=== PATIENT | female | born 2000 | race Caucasian/White ===

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

== ENCOUNTER 2020-04-17 13:06 | Emergency (ER) | payer MEDICAID ==
[~2020-04-17] VITALS: Ht 165.1 cm; Wt 72.6 kg
--- NOTE | 2020-04-17 13:10 | NUR ---
BIB SELF C/O ALLERGIC REACTION. PT PRESENTING WITH HIVES ALL OVER HER BODY. NO RESP DISTRESS NOTED. BREATHING EVEN AND UNLABORED. AWAITING MD MENDOZA
[2020-04-17 13:13] VITALS: BP 133/79
[2020-04-17] MEDS ORDERED: diphenhydrAMINE HCL 50 MG CAPSULE ONE (13:23)
[2020-04-17] MEDS ORDERED: FAMOTIDINE (20 MG) 20 MG TABLET ONE (13:24)
[2020-04-17] MEDS ORDERED: predniSONE 20 MG TABLET ONE (13:24)
[2020-04-17] MEDS ORDERED: diphenhydrAMINE HCL 50 MG CAPSULE PO ONE (13:30)
[2020-04-17] MEDS ORDERED: predniSONE 10 MG TABLET PO ONE (13:30)
[2020-04-17] MEDS ORDERED: FAMOTIDINE (20 MG) 20 MG TABLET PO ONE (13:30)
--- NOTE | 2020-04-17 14:17 | NUR ---
Patient discharged to home in stable condition. Written and verbal after care instructions given. Patient verbalizes understanding of instruction.
== END 2020-04-17 14:18 | disposition home or self-care (01) ==
LOC: ER 13:12
DX: L50.8 Other urticaria (principal)
CPT/HCPCS: 99284; J7512; Q0163

== ENCOUNTER 2020-04-18 15:53 | Emergency (ER) | payer MEDICAID ==
[~2020-04-18] VITALS: Ht 172.7 cm; Wt 74.8 kg
[2020-04-18] MEDS ORDERED: predniSONE 20 MG TABLET ONE (16:07)
[2020-04-18] MEDS ORDERED: diphenhydrAMINE HCL 50 MG/ML VIAL ONE (16:07)
[2020-04-18] MEDS ORDERED: FAMOTIDINE/PF INJ 20 MG/2 ML VIAL IV ONE ×2 (16:07→16:30)
--- NOTE | 2020-04-18 16:18 | NUR ---
Patient came in to the er c/o generalized hives and itching since yesterday, no SOB 99% on room air. On room air, breathing evenly and unlabored. kept comfortable, will continue to monitor accordingly.
[2020-04-18] MEDS ORDERED: diphenhydrAMINE HCL 50 MG/ML VIAL IV ONE (16:30)
[2020-04-18] MEDS ORDERED: predniSONE 20 MG TABLET PO ONE (16:30)
[2020-04-18] MEDS ORDERED: IV NS 0.9% 1,000 ML IV ONE (16:30)
[2020-04-18 17:15] VITALS: BP 128/81
--- NOTE | 2020-04-18 17:16 | NUR ---
Patient discharged to home in stable condition. Written and verbal after care instructions given. Patient verbalizes understanding of instruction.IV removed. Catheter intact and site benign. Pressure and 4x4 applied to site. No bleeding noted.
== END 2020-04-18 17:15 | disposition home or self-care (01) ==
LOC: ER 15:59
DX: L50.8 Other urticaria (principal)
CPT/HCPCS: 96361; 96374; 96375; 99284; J1200; J3490; J7030; J7512